=== PATIENT | male | born 1965 | race Hispanic/Latino ===

== ENCOUNTER 2018-05-16 21:44 | Inpatient (IN) | payer OTHER, SELFPAY ==
[2018-05-16 22:45] LABS: #Basophils 0.1 thou/uL (0.0-0.2); #Eosinphils 0.3 thou/uL (0.0-0.7); #Lymphocytes 2.4 thou/uL (1.20-3.40); #Monocytes 0.6 thou/uL (0.11-0.59); %Basophils 1.1 % (0.0-1.0); %Eosinophils 3.6 % (0.0-10.0); %Lymphocytes 28.9 % (21.0-51.0); %Monocytes 7.4 % (0.0-10.0); Hemoglobin 12.5 g/dL (14.0-18.0); Mean Corpuscular HGB CONC 33.9 g/dL (32.0-36.0); Mean Corpuscular Hemoglobin 30.9 pg (27.0-31.0); Mean Corpuscular Volume 91.2 fL (78.0-98.0); Platelet Count 182 thou/uL (130-400); RBC Distribution Width 11.9 % (11.5-14.5); Red Blood Cell (RBC) Count 4.06 mill/uL (4.70-6.10); White Blood Cell (WBC) Count 8.4 thou/uL (4.8-10.8)
[2018-05-16 23:08] LABS: ALT (SGPT) 23 U/L (8-55); AST (SGOT) 16 U/L (5-34); Albumin 3.7 g/dL (3.5-5.0); Alkaline Phosphatase 131 U/L (40-150); Anion Gap 12 mmol/L (10-20); BUN (Urea Nitrogen) 16 mg/dL (8.9-20.6); Bilirubin, Total 0.2 mg/dL (0.2-1.2); Calc. Creatinine Clearance 0 mL/min (70-130); Calcium 8.8 mg/dL (7.8-10.44); Carbon Dioxide 24 mmol/L (22-29); Chloride 102 mmol/L (98-107); Estimated GFR-MDRD Greater than 90; Globulin 2.9 g/dL (2.4-3.5); Glucose 207 mg/dL (70-105); Potassium 4.1 mmol/L (3.5-5.1); Protein, Total 6.6 g/dL (6.0-8.3); Sodium 134 mmol/L (136-145)
--- NOTE | 2018-05-16 23:25 | ULT ---
VENOUS DUPLEX SONOGRAM RIGHT LOWER EXTREMITY: History: Right leg pain and edema. FINDINGS: The right common femoral vein and greater saphenous junction were evaluated along with the femoral, d eep femoral, popliteal, and posterior tibial veins. There is good color and spectral doppler flow, co mpression, and augmentation. IMPRESSION: No sonographic evidence of DVT right lower extremity. POS: THEA
[2018-05-17] MEDS ORDERED: Ondansetron ODT 4 MG TAB PO PRN (00:56)
[2018-05-17] MEDS ORDERED: Bisacodyl 5 MG TAB PO PRN (00:56)
[2018-05-17] MEDS ORDERED: Ondansetron HCl/PF 4 MG/2 ML Vial IVP PRN (00:56)
[2018-05-17] MEDS ORDERED: Senokot 8.6 MG TAB PO PRN (00:56)
[2018-05-17] MEDS ORDERED: Acetaminophen 325 MG TAB PO PRN (00:56)
[2018-05-17] MEDS ORDERED: Enoxaparin Sodium 40 MG/0.4 ML SYRINGE SC SCH (01:00)
[2018-05-17] MEDS ORDERED: cefTRIAXone\\ROCEPHIN 1 GM VIAL ONE (01:26)
[2018-05-17 01:35] LABS: #Basophils 0.1 thou/uL (0.0-0.2); #Eosinphils 0.3 thou/uL (0.0-0.7); #Lymphocytes 2.2 thou/uL (1.20-3.40); #Monocytes 0.6 thou/uL (0.11-0.59); %Basophils 0.8 % (0.0-1.0); %Eosinophils 3.6 % (0.0-10.0); %Lymphocytes 27.3 % (21.0-51.0); %Monocytes 6.9 % (0.0-10.0); %Neutrophils 61.4 % (42.0-75.0); Hemoglobin 12.6 g/dL (14.0-18.0); Mean Corpuscular HGB CONC 34.6 g/dL (32.0-36.0); Mean Corpuscular Hemoglobin 31.4 pg (27.0-31.0); Mean Corpuscular Volume 90.8 fL (78.0-98.0); Mean Platelet Volume 8.2 fL (7.4-10.4); Platelet Count 179 thou/uL (130-400); RBC Distribution Width 11.9 % (11.5-14.5); Red Blood Cell (RBC) Count 4.01 mill/uL (4.70-6.10); White Blood Cell (WBC) Count 8.1 thou/uL (4.8-10.8)
[2018-05-17 01:59] LABS: Anion Gap 15 mmol/L (10-20); BUN (Urea Nitrogen) 17 mg/dL (8.9-20.6); Calc. Creatinine Clearance 0 mL/min (70-130); Calcium 8.9 mg/dL (7.8-10.44); Carbon Dioxide 21 mmol/L (22-29); Chloride 105 mmol/L (98-107); Estimated GFR-MDRD Greater than 90; Glucose 170 mg/dL (70-105); Potassium 4.6 mmol/L (3.5-5.1); Sodium 136 mmol/L (136-145)
[2018-05-17 02:36] VITALS: BMI 35.5
[2018-05-17] MEDS: Sodium Chloride 0.9% 1,000 ML IV SCH ×4 (03:04→21:14)
--- NOTE | 2018-05-17 03:46 | HP ---
CHIEF COMPLAINT: Right lower extremity pain, warmness, and redness. HISTORIAN: The patient, reliable. HISTORY OF PRESENT ILLNESS: This is a 52-year-old male with no significant past medical history, pre senting with chief complaint of pain, redness, and swelling of the right lower extremity around the a nkle. These symptoms started on Thursday prior to the day of admission and states that it was localiz ed pain around the ankle region, it started to trend up and the patient stated that he started using Epsom salt to help with the swelling; however, it did not seem to help and the symptoms seemed to be worsened and this prompted him to come to the ED to be evaluated today. REVIEW OF SYSTEMS: Positive for erythema, edema, pain, otherwise as documented in HPI. All systems are reviewed and are negative. PAST MEDICAL HISTORY: Patient does not have any past medical history. SURGICAL HISTORY: Patient does not have any surgical history. PSYCHIATRIC HISTORY: Patient does not have any psychiatric history. SOCIAL HISTORY: The patient denies alcohol, illicit drug use, or smoking. Patient lives at home wit h . The patient has family. Patient states that he is in a monogamous relationship and only is faithful to the , no other else. ALLERGIES: No known drug allergies. CURRENT MEDICATIONS: Patient does not take any medications. PHYSICAL EXAMINATION: VITAL SIGNS: Blood pressure is 119/76, pulse of 73, respiratory rate of 18, temperature of 99.4, oxy gen saturation of 98. GENERAL: Patient is lying in bed comfortably, not in acute distress, speaking in full sentences. HEENT: Normocephalic, atraumatic. Pupils are equally round and reactive to light. Extraocular move ments are intact. No scleral icterus. NECK: Supple. No JVD. Trachea is midline. Mucous membranes are moist. RESPIRATORY: Clear to auscultation bilaterally. No wheezing, no rales, no rhonchi appreciated. CARDIOVASCULAR: Positive S1, S2, regular rate and rhythm. No murmurs, no gallops, no rubs appreciat ed. ABDOMEN: Soft, nontender, nondistended. Positive bowel sounds in all quadrants. No ecchymosis, no distention, no tenderness noted. BACK: Normal back. EXTREMITIES: 5/5 upper extremity strength, 5/5 lower extremity strength. Good pulses bilaterally at the upper and lower extremities. Patient has edema present at the right lower extremity around the right ankle region. Right lateral ankle has tenderness to palpation. There is erythema noted. Ther e is restriction to range of motion at the right ankle. NEUROLOGIC: Cranial nerves II through XII grossly intact. No focal neurologic deficits noted. SKIN: Referred to description for the lower extremities. RADIOLOGY: Interpretation of lower extremity is negative for DVT. ED COURSE: The patient received vancomycin, Rocephin, morphine, and normal saline. LABORATORY DATA: WBC 8.4, hemoglobin 12.5, hematocrit is 37.0, platelet of 182,000. Sodium 134, pot assium 4.1, chloride 102, carbon dioxide 24, BUN 16, creatinine 0.84, glucose 207. C-reactive protei n is 3.09. ASSESSMENT AND PLAN: 1. This is a 52-year-old male being admitted for right ankle erythema due to cellulitis. At this po int, we have demarcated the area with a marker. We will continue patient on vancomycin, Rocephin, an d we will wait for blood culture results and based on blood culture results, we will tailor antibioti cs to infectious etiology causing patient's cellulitis. We have consulted Orthopedics to examine the right ankle joint. Follow up with Orthopedics regarding their recommendation. 2. Hyperglycemia. The patient states that he does not have history of diabetes mellitus. However, patient's blood glucoses are elevated, therefore we will get hemoglobin A1c, we will also get lipid p javier. We will monitor the patient's sugars and based on patient's A1c, we can be able to diagnose th e patient if patient has diabetes or not. 3. Deep venous thrombosis prophylaxis and gastrointestinal prophylaxis.
[2018-05-17 05:07] LABS: Hemoglobin A1c 6.3 % (4.0-6.0)
[2018-05-17 05:32] LABS: Cardiac Risk 5.6 (Less than 4.5)
[2018-05-17] MEDS ORDERED: HumaLOG 300 UNITS/3 ML VIAL SC PRN ×2 (08:25)
[2018-05-17] MEDS ORDERED: Dextrose 5% in Water 1,000 ML IV PRN (08:25)
[2018-05-17] MEDS ORDERED: Dextrose 50% Abboject 50 ML SYRINGE SLOW IVP PRN (08:25)
[2018-05-17] MEDS: Saccharomyces boulardii 250 MG CAP PO SCH (10:46)
[2018-05-17] MEDS ORDERED: Ketorolac Tromethamine 30 MG/ML VIAL IVP PRN (12:06)
--- NOTE | 2018-05-17 12:08 | PDOC.PN ---
- Subjective Encounter Start Date: 05/17/18 Encounter Start Time: 08:30 -: old records requested/rev Patient seen and examined. No new complaints. No overnight events - Objective Resuscitation Status: Resuscitation Status FULL:Full Resuscitation MAR Reviewed: Yes Vital Signs & Weight: Vital Signs (12 hours) Temp Pulse Resp BP Pulse Ox 05/17/18 11:25 97.8 F 68 18 103/72 93 L 05/17/18 07:59 98.2 F 69 18 95 05/17/18 07:25 98.2 F 69 18 96/59 L 95 05/17/18 02:34 98.0 F 66 18 106/67 93 L 05/17/18 02:15 98.0 F 66 18 93 L Weight Weight 255 lb I&O: 05/16/18 05/17/18 05/18/18 06:59 06:59 06:59 Intake Total 2000 Output Total 250 Balance 1750 Result Diagrams: 05/17/18 01:13 05/17/18 01:13 Additional Labs: Accuchecks 05/17/18 11:25 POC Glucose 128 H Phys Exam - Physical Examination Constitutional: NAD HEENT: PERRLA, moist MMs, sclera anicteric Neck: no JVD, supple Respiratory: no wheezing, no rales, no rhonchi Cardiovascular: RRR, no significant murmur, no rub Gastrointestinal: soft, non-tender, no distention, positive bowel sounds Musculoskeletal: no edema, pulses present right ankle cellultis Neurological: non-focal, normal sensation, moves all 4 limbs Psychiatric: normal affect, A&O x 3 Skin: no rash, normal turgor Dx/Plan (1) Cellulitis of right ankle Code(s): L03.115 - CELLULITIS OF RIGHT LOWER LIMB Status: Acute (2) Dyslipidemia Code(s): E78.5 - HYPERLIPIDEMIA, UNSPECIFIED Status: Acute (3) New onset type 2 diabetes mellitus Code(s): E11.9 - TYPE 2 DIABETES MELLITUS WITHOUT COMPLICATIONS Status: Acute (4) Obesity (BMI 30-39.9) Code(s): E66.9 - OBESITY, UNSPECIFIED Status: Chronic - Plan cont current plan of care, continue antibiotics * continue vancomycin and rocephin * add toradol and morphin for pain control * medication reviewed as below * symptomatic treatment * ortho consulted * check uric acid * add metformin * diabetes education. Review of Systems - Review of Systems Eyes: negative: Pain, Vision Change, Conjunctivae Inflammation, Eyelid Inflammation, Redness, Other ENT: negative: Ear Pain, Ear Discharge, Nose Pain, Nose Discharge, Nose Congestion, Mouth Pain, Mouth Swelling, Throat Pain, Throat Swelling, Other Respiratory: negative: Cough, Dry, Shortness of Breath, Hemoptysis, SOB with Excertion, Pleuritic Pain, Sputum, Wheezing Cardiovascular: negative: chest pain, palpitations, orthopnea, paroxysmal nocturnal dyspnea, edema, light headedness, other Gastrointestinal: negative: Nausea, Vomiting, Abdominal Pain, Diarrhea, Constipation, Melena, Hematochezia, Other Genitourinary: negative: Dysuria, Frequency, Incontinence, Hematuria, Retention , Other Musculoskeletal: Leg Pain. negative: Neck Pain, Shoulder Pain, Arm Pain, Back Pain, Hand Pain, Foot Pain, Other Skin: negative: Rash, Lesions, Selvin, Bruising, Other - Medications/Allergies Allergies/Adverse Reactions: Allergies Allergy/AdvReac Type Severity Reaction Status Date / Time No Known Allergies Allergy Verified 05/17/18 02:42 Medications: Current Medications Acetaminophen (Tylenol) 650 mg PO Q4H PRN PRN Reason: Headache/Fever or Pain Last Admin: 05/17/18 03:10 Dose: 650 mg Atorvastatin Calcium (Lipitor) 10 mg PO HS BREANNA Bisacodyl (Dulcolax) 10 mg PO DAILYPRN PRN PRN Reason: Constipation Dextrose/Water (Dextrose 50%) 25 gm SLOW IVP PRN PRN PRN Reason: Hypoglycemia Glucagon (Glucagon) 1 mg IM PRN PRN PRN Reason: Hypoglycemia Sodium Chloride (Normal Saline 0.9%) 1,000 mls @ 100 mls/hr IV .Q10H BREANNA Last Admin: 05/17/18 03:04 Dose: 1,000 mls Vancomycin HCl 1.75 gm/ Sodium (Chloride) 500 mls @ 250 mls/hr IVPB 0400,1200, 2000 BREANNA Ceftriaxone Sodium 2 gm/ (Sodium Chloride) 100 mls @ 200 mls/hr IVPB Q24HR@ 1400 BREANNA Dextrose/Water (D5w) 1,000 mls @ 0 mls/hr IV .Q0M PRN PRN Reason: Hypoglycemia Insulin Human Lispro (Humalog) 0 units SC .MODERATE SLIDING SC PRN PRN Reason: Moderate Correctional Scale Insulin Human Lispro (Humalog) 0 units SC .BEDTIME SLIDING SC PRN PRN Reason: Bedtime Correctional Scale Metformin HCl (Glucophage) 500 mg PO BID-[facility] Miscellaneous Medication (Pharmacy To Dose) 0 each IVPB PRN PRN PRN Reason: [facility] Pharmacy to Dose Morphine Sulfate (Morphine) 2 mg SLOW IVP Q4H PRN PRN Reason: Pain Last Admin: 05/17/18 10:46 Dose: 2 mg Ondansetron HCl (Zofran Odt) 4 mg PO Q6H PRN PRN Reason: Nausea/Vomiting Ondansetron HCl (Zofran) 4 mg IVP Q6H PRN PRN Reason: Nausea/Vomiting Saccharomyces Boulardii (Florastor) 250 mg PO DAILY [facility] Last Admin: 05/17/18 10:46 Dose: 250 mg Senna (Senokot) 2 tab PO HSPRN PRN PRN Reason: Constipation Sodium Chloride (Flush - Normal Saline) 10 ml IVF Q12HR [facility] Last Admin: 05/17/18 08:08 Dose: Not Given Sodium Chloride (Flush - Normal Saline) 10 ml IVF PRN PRN PRN Reason: Saline Flush
[2018-05-17] MEDS ORDERED: cefTRIAXone\\ROCEPHIN 2 GM in Sodium Chloride 0.9% 100 ML IVPB SCH (14:00)
[2018-05-17] MEDS ORDERED: cefTRIAXone\\ROCEPHIN 1 GM in Sodium Chloride 0.9% 100 ML IVPB SCH (14:00)
[2018-05-17] MEDS: Vancomycin HCl 1.75 GM in Sodium Chloride 0.9% 500 ML IVPB SCH ×2 (15:43→21:10)
[2018-05-17] MEDS: metFORMIN 500 MG TAB PO SCH (17:43)
[2018-05-17] MEDS ORDERED: Atorvastatin Calcium 10 MG TAB PO SCH (21:00)
[2018-05-18 04:40] LABS: Vancomycin, Trough 26.9 ug/mL
[2018-05-18] MEDS: Vancomycin HCl 1.75 GM in Sodium Chloride 0.9% 500 ML IVPB SCH (04:47)
[2018-05-18] MEDS: Sodium Chloride 0.9% 1,000 ML IV SCH (05:27)
[2018-05-18] MEDS: Saccharomyces boulardii 250 MG CAP PO SCH (08:37)
[2018-05-18] MEDS: metFORMIN 500 MG TAB PO SCH (08:37)
--- NOTE | 2018-05-18 12:17 | DIS ---
DATE OF ADMISSION: 05/17/2018 DATE OF DISCHARGE: 05/18/2018 PRIMARY CARE PHYSICIAN: [facility] call admission. DISCHARGE DISPOSITION: Home. PRIMARY DISCHARGE DIAGNOSES: 1. Right ankle cellulitis, improved. 2. New onset diabetes type 2. 3. Dyslipidemia. SECONDARY DISCHARGE DIAGNOSIS: Obesity with BMI 35. PRIMARY PROCEDURE AND OPERATION: None. RADIOLOGICAL INVESTIGATION: Ultrasound negative for any DVT. SIGNIFICANT LABORATORY DATA: WBC 8.1, hemoglobin 12.6, platelet 179, creatinine 0.79. Hemoglobin A1 c 6.3. CRP 3.09. Electrolytes normal. LFT normal, LDL 153. Culture negative. DISCHARGE MEDICATIONS: Keflex 500 mg p.o. t.i.d. for 10 days, metformin 500 mg p.o. b.i.d., Florasto r 250 mg p.o. daily for 10 days. CONTRAINDICATIONS: None. CODE STATUS: FULL CODE. INPATIENT CONSULTANTS: Dr. Tyson was consulted while in hospital. TEST RESULTS PENDING ON DISCHARGE: None. ALLERGIES: No known drug allergy. DISCHARGE PLAN: Post hospital, the patient will follow up with primary care physician. HOSPITAL COURSE: A 52-year-old male who was admitted by Dr. Arguelles. Please see his H&P for further detail. The patient was admitted for right ankle cellulitis. He had hyperglycemia and that is why w e checked hemoglobin A1c, which was high. Patient has new onset diabetes type 2 and that is why we p rovided diabetes education and dietary education. We started metformin while in hospital. His cellu litis was treated with Rocephin and vancomycin with significant clinical improvement. Orthopedic doc tor evaluated this patient and this patient was not requiring any surgical intervention. We also rul ed out gout. While in hospital, we provided diabetes education, dietary education. Upon discharge, we are prescri john Keflex, metformin, and Florastor. The patient is seen and examined at bedside today. I have discussed the plan of care with the patien meghan and his . His physical examination is normal. His cellulitis is significantly improved. His pain is well controlled without any pain medication. All new medication prescription sent to his pharmacy. Patient is medically stable for discharge job [place]
[2018-05-18 13:27] VITALS: BP 117/74; TEMP 97.5
[2018-05-18] MEDS ORDERED: Vancomycin HCl 1.75 GM in Sodium Chloride 0.9% 500 ML IVPB SCH (16:00)
== END 2018-05-18 13:14 | disposition home or self-care (01) | DRG 603 ==
LOC: ERS 21:44 → T4-B 05-17 00:50 → OBSVTOIN 05-17 00:50
PROVIDERS: ADMIT Internal Medicine; ATTEND Internal Medicine
DX: L03.115 Cellulitis of right lower limb (principal); E78.5 Hyperlipidemia, unspecified; E66.9 Obesity, unspecified; Z68.35 Body mass index [BMI] 35.0-35.9, adult; E11.65 Type 2 diabetes mellitus with hyperglycemia
CPT/HCPCS: 36415; 36416; 80048; 80053; 80061; 80202; 83036; 83605; 84550; 85025; 85652; 86140; 87040; 96365; 96375; A4216; J0696; J1885; J2270; J2405; J3370; J7050

== ENCOUNTER 2021-03-12 16:26 | Observation (INO) | payer OTHER, SELFPAY ==
[2021-03-12] MEDS ORDERED: hydrALAZINE 20 MG/ML VIAL SLOW IVP PRN (17:13)
[2021-03-12] MEDS ORDERED: Dextrose 50% Abboject 50 ML SYRINGE SLOW IVP PRN (17:13)
[2021-03-12] MEDS ORDERED: Ondansetron ODT 4 MG TAB PO PRN (17:13)
[2021-03-12] MEDS ORDERED: Dextrose 5% in Water 1,000 ML IV PRN (17:13)
[2021-03-12] MEDS ORDERED: Ondansetron PF 4 MG/2 ML Vial IVP PRN (17:13)
[2021-03-12] MEDS ORDERED: Rib Fracture Protocol IV SCH ×2 (17:15→18:15)
[2021-03-12] MEDS ORDERED: Acetaminophen 650 MG Suppository PR SCH (18:00)
[2021-03-12] MEDS ORDERED: Ketorolac Tromethamine 30 MG/ML VIAL IVP SCH (18:00)
[2021-03-12 18:56] VITALS: BMI 34.8
[2021-03-12] MEDS ORDERED: Cyclobenzaprine 10 MG TAB PO PRN (19:15)
[2021-03-12] MEDS ORDERED: Rib Fracture Protocol PO SCH (19:15)
[2021-03-12] MEDS: Acetaminophen 500 MG TAB PO SCH (19:53)
[2021-03-12] MEDS: Gabapentin 300 MG CAP PO SCH (21:41)
[2021-03-12] MEDS: Famotidine 20 MG TAB PO SCH (21:42)
[2021-03-12] MEDS: Ibuprofen 800 MG TAB PO SCH (23:26)
[2021-03-12] MEDS: traMADol HCl 50 MG TAB PO SCH (23:26)
[2021-03-12] MEDS ORDERED: Acetaminophen 500 MG TAB PO SCH (23:59)
[2021-03-13] MEDS: Acetaminophen 500 MG TAB PO SCH ×3 (03:20→15:21)
[2021-03-13] MEDS: traMADol HCl 50 MG TAB PO SCH ×2 (05:52→12:05)
[2021-03-13] MEDS: Ibuprofen 800 MG TAB PO SCH (05:52)
[2021-03-13] MEDS: Famotidine 20 MG TAB PO SCH (09:00)
[2021-03-13] MEDS: Gabapentin 300 MG CAP PO SCH (09:00)
[2021-03-13] MEDS ORDERED: Ibuprofen 800 MG TAB PO SCH (12:00)
[2021-03-13] MEDS ORDERED: Pregabalin 75 MG CAP PO SCH ×2 (12:00→21:00)
[2021-03-13 16:37] VITALS: TEMP 98.7
[2021-03-13 16:38] VITALS: BP 101/64
[2021-03-13] MEDS ORDERED: Ibuprofen 200 MG TAB PO SCH (18:00)
== END 2021-03-13 17:27 | disposition home or self-care (01) ==
LOC: UNDOADMOB 16:26 → SJJU 16:26
PROVIDERS: ADMIT Surgery; ATTEND Surgery
DX: S22.42XA Multiple fractures of ribs, left side, initial encounter for closed fracture (principal); G89.11 Acute pain due to trauma; W11.XXXA Fall on and from ladder, initial encounter
CPT/HCPCS: 96374; G0378; J1885

== ENCOUNTER 2021-03-16 11:09 | Inpatient (IN) | payer SELFPAY ==
[~2021-03-16 11:09] MED LIST: Iopamidol-370 76% 500 ML 1 ML ONE
[2021-03-16] MEDS ORDERED: Morphine 4 MG/ML VIAL ONE (12:34)
[2021-03-16 12:35] LABS: #Basophils 0.1 thou/uL (0.0-0.2); #Eosinphils 0.4 thou/uL (0.0-0.7); #Monocytes 0.5 thou/uL (0.11-0.59); #Neutrophils 5.1 thou/uL (1.40-6.50); %Basophils 1.1 % (0.0-1.0); %Eosinophils 4.9 % (0.0-10.0); %Lymphocytes 24.7 % (21.0-51.0); %Monocytes 5.7 % (0.0-10.0); %Neutrophils 63.5 % (42.0-75.0); Hemoglobin 14.2 g/dL (14.0-18.0); Mean Corpuscular HGB CONC 34.4 g/dL (32.0-36.0); Mean Corpuscular Hemoglobin 31.7 pg (27.0-31.0); Mean Corpuscular Volume 92.2 fL (78.0-98.0); Platelet Count 243 thou/uL (130-400); RBC Distribution Width 12.2 % (11.5-14.5); White Blood Cell (WBC) Count 7.9 thou/uL (4.8-10.8)
[2021-03-16 12:57] LABS: Anion Gap 16 mmol/L (10-20); BUN (Urea Nitrogen) 17 mg/dL (8.4-25.7); Calc. Creatinine Clearance 0 mL/min (70-130); Calcium 9.7 mg/dL (7.8-10.44); Carbon Dioxide 24 mmol/L (22-29); Chloride 101 mmol/L (98-107); Glucose 138 mg/dL (70-105); Potassium 4.2 mmol/L (3.5-5.1); Sodium 137 mmol/L (136-145)
[2021-03-16 13:13] LABS: ALT (SGPT) 44 U/L (8-55); AST (SGOT) 32 U/L (5-34); Albumin 4.3 g/dL (3.5-5.0); Alkaline Phosphatase 137 U/L (40-110); Anion Gap 14 mmol/L (10-20); BUN (Urea Nitrogen) 17 mg/dL (8.4-25.7); Bilirubin, Total 0.4 mg/dL (0.2-1.2); Calc. Creatinine Clearance 0 mL/min (70-130); Calcium 9.5 mg/dL (7.8-10.44); Carbon Dioxide 26 mmol/L (22-29); Chloride 102 mmol/L (98-107); Globulin 2.9 g/dL (2.4-3.5); Glucose 140 mg/dL (70-105); Lipase 14 U/L (8-78); Potassium 4.4 mmol/L (3.5-5.1); Protein, Total 7.2 g/dL (6.0-8.3); Sodium 138 mmol/L (136-145)
[2021-03-16] MEDS ORDERED: Ketorolac Tromethamine 30 MG/ML VIAL ONE (13:32)
[2021-03-16] MEDS ORDERED: HYDROmorphone 0.5 MG/0.5 ML SYRINGE ONE (13:34)
[2021-03-16] MEDS ORDERED: Cyclobenzaprine 10 MG TAB PO PRN (14:26)
[2021-03-16] MEDS ORDERED: Ondansetron ODT 4 MG TAB PO PRN (14:26)
[2021-03-16 14:43] LABS: Bilirubin Negative (Negative); Blood, Urine Negative (Negative); Clarity Clear (Clear); Glucose, Urine (Dipstick) Normal (Negative); Ketone, Urine Negative (Negative); Leukocyte Negative Leu/uL (Negative); Nitrite Negative (Negative); Protein, Urine (Dipstick) 10 mg/dL (Neg-Trace); Urobilinogen Normal mg/dL (Less than 2); pH, Urine 5.5 (5.0-9.0)
[2021-03-16 14:45] LABS: Specific Gravity, Urine Greater than 1.060 (1.002-1.036)
[2021-03-16] MEDS: Ibuprofen 200 MG TAB PO SCH ×2 (16:45→23:23)
[2021-03-16] MEDS: Acetaminophen 500 MG TAB PO SCH ×2 (16:46→21:24)
[2021-03-16] MEDS: Gabapentin 300 MG CAP PO SCH ×2 (16:47→21:25)
[2021-03-16 17:11] VITALS: BMI 34.8
[2021-03-16] MEDS: traMADol HCl 50 MG TAB PO SCH ×2 (17:53→23:23)
[2021-03-16] MEDS ORDERED: Bisacodyl 10 MG SUPP PR PRN (18:26)
[2021-03-16] MEDS: Senokot S 8.6-50 MG TAB PO SCH (21:25)
[2021-03-16] MEDS: traMADol HCl 50 MG TAB PO PRN (23:23)
[2021-03-17] MEDS: Acetaminophen 500 MG TAB PO SCH ×3 (04:28→14:33)
[2021-03-17 05:58] LABS: #Basophils 0.1 thou/uL (0.0-0.2); #Eosinphils 0.4 thou/uL (0.0-0.7); #Monocytes 0.5 thou/uL (0.11-0.59); #Neutrophils 3.8 thou/uL (1.40-6.50); %Eosinophils 6.1 % (0.0-10.0); %Lymphocytes 29.8 % (21.0-51.0); %Monocytes 7.3 % (0.0-10.0); %Neutrophils 55.8 % (42.0-75.0); Hemoglobin 12.1 g/dL (14.0-18.0); Mean Corpuscular HGB CONC 32.2 g/dL (32.0-36.0); Mean Corpuscular Hemoglobin 30.3 pg (27.0-31.0); Mean Corpuscular Volume 94.1 fL (78.0-98.0); Mean Platelet Volume 7.8 fL (7.4-10.4); Platelet Count 209 thou/uL (130-400); RBC Distribution Width 12.2 % (11.5-14.5); Red Blood Cell (RBC) Count 3.99 mill/uL (4.70-6.10); White Blood Cell (WBC) Count 6.8 thou/uL (4.8-10.8)
[2021-03-17 06:06] LABS: PTT 25.5 sec (22.9-36.1); Prothrombin Time 13.7 sec (12.0-14.7)
[2021-03-17 06:16] LABS: Anion Gap 11 mmol/L (10-20); BUN (Urea Nitrogen) 16 mg/dL (8.4-25.7); Calc. Creatinine Clearance 183 mL/min (70-130); Calcium 8.6 mg/dL (7.8-10.44); Carbon Dioxide 26 mmol/L (22-29); Chloride 103 mmol/L (98-107); Glucose 117 mg/dL (70-105); Potassium 4.3 mmol/L (3.5-5.1); Sodium 136 mmol/L (136-145)
[2021-03-17] MEDS: Ibuprofen 200 MG TAB PO SCH ×2 (06:36→14:32)
[2021-03-17] MEDS: traMADol HCl 50 MG TAB PO SCH (06:37)
[2021-03-17] MEDS: traMADol HCl 50 MG TAB PO PRN (06:38)
[2021-03-17] MEDS: Senokot S 8.6-50 MG TAB PO SCH (08:27)
[2021-03-17] MEDS: Gabapentin 300 MG CAP PO SCH ×2 (08:27→14:32)
[2021-03-17] MEDS ORDERED: Polyethylene Glycol 3350 17 GM Packet PO SCH (09:00)
[2021-03-17] MEDS ORDERED: Enoxaparin Sodium 40 MG/0.4 ML SYRINGE SC SCH (09:00)
[2021-03-17] MEDS ORDERED: Magnesium Citrate 300 ML BOT PO SCH (12:00)
[2021-03-17] MEDS ORDERED: traMADol HCl 50 MG TAB PO SCH (12:00)
[2021-03-17 12:42] VITALS: BP 109/71; TEMP 97.6
[2021-03-17] MEDS ORDERED: Mineral Oil ENEMA PR SCH (14:45)
== END 2021-03-17 15:58 | disposition home or self-care (01) | DRG 200 ==
LOC: ERS 11:09 → SURG A 14:28 → OBSVTOIN 14:28
PROVIDERS: ADMIT Surgery; ATTEND Surgery
DX: S27.1XXA Traumatic hemothorax, initial encounter (principal); S22.42XA Multiple fractures of ribs, left side, initial encounter for closed fracture; W11.XXXA Fall on and from ladder, initial encounter; K59.00 Constipation, unspecified; R09.02 Hypoxemia; Z20.822 Contact with and (suspected) exposure to COVID-19
CPT/HCPCS: 36415; 71045; 74177; 80048; 81003; 83690; 83735; 84100; 84484; 85025; 85610; 85730; 96374; 96375; J1170; J1650; J1885; J2270; Q0162; Q9967